=== PATIENT | male | born 1960 | race Caucasian/White ===

== ENCOUNTER 2020-04-26 14:52 | Emergency (ER) | payer BC ==
[~2020-04-26] VITALS: Ht 170.2 cm; Wt 81.7 kg
--- NOTE | ~2020-04-26 | EMS ---
[facility] [address] [place] [address] EMS Patient Care Report Name: LAKE WALLER Room #: PRE M.R.#: [id number] Admission: Attend Phys: Discharge: Date of : 56 Report #: [id number] THIS REPORT FOR: //name// Report Transmitted: 04/26/2020 14:19 EMS Care Summary [place], [place]/[facility] Incident [id number] @ 04/26/2020 14:03 Incident Location [address] [place], [place] [id number] Patient LAKE WALLER Male, 59 Years 1960 Patient Address [address] [place], [place] [id number] Patient History Behavioral/Psychiatric Disorder, Chief Complaint alcohol intox Disposition Transported No Lights/[place] Reason Overdose/Poisoning/Ingestion Transported To [facility] Narrative ems met [facility] on scene. pt found sitting upright against car and alert. pt alert lao speaking and confused gcs 14. pt repeatedly asked for "one cerveza". pt has no complaints. pt could not provide his address. empty bottles of liquor were found in pts car by [facility]. pt continued to ask ems for "one more cerveza" and pointed at a nearby market. pt was transferred onto ems cot and was secured in a semi fowlers position without incident. pt was loaded into ambulance. pts [facility] [address] [place] [address] EMS Patient Care Report Name: LAKE WALLER Room #: PRE [facility] [id number] Admission: Attend Phys: Discharge: Date of : 56 Report #: [id number] family was called on his phone. pts son "Alon" spoke to ems and he stated to take pt to hospital. pts family was advised pt is being transported to [facility]. pt was transported non emergent. pt would not comply with wearing a facemask. pt continued to ask for more cerveza. pt stated he drank x3 bottles of whiskey. when attempting a bl/gl check, once ems wiped pts finger with an alcohol pad pt would immediately start sucking the alcohol off his finger and demanded more alcohol. bl/gl check was unsuccessful. transport was uneventful and pt rested on ems cot. pt care was transferred to appropriate staff and ems goes back in service. pts phone, wallet and keys were left with pt. Initial Vitals @14:28P: 100,R: 20,BP: 146/66,Pain: 0/10,GCS: 15,SpO2: 97,Revised Trauma: 12, @14:42P: 100,R: 20,BP: 142/66,GCS: 15,SpO2: 97,Revised Trauma: 12, Assessments @14:19MENTAL:No Abnormalities,SKIN:No Abnormalities,HEENT:Head/Face: No Abnormalities,Eyes: No Abnormalities,Neck/Airway: No Abnormalities,LUNG SOUNDS:General: No Abnormalities,Left Upper: No Abnormalities,Right Upper: No Abnormalities,Left Lower: No Abnormalities,Right Lower: No Abnormalities,ABDOMEN:General: No Abnormalities,Left Upper: No Abnormalities,Right Upper: No Abnormalities,Left Lower: No Abnormalities,Right Lower: No Abnormalities,PELVIS//GI:No Abnormalities,EXTREMITIES:Left Arm: No Abnormalities,Right Arm: No Abnormalities,Left Leg: No Abnormalities,Right Leg: No Abnormalities,PULSE:NEURO:No Abnormalities,@14:42MENTAL:No Abnormalities,SKIN:No Abnormalities,HEENT:Head/Face: No Abnormalities,Eyes: No Abnormalities,Neck/Airway: No Abnormalities,LUNG SOUNDS:General: No Abnormalities,Left Upper: No Abnormalities,Right Upper: No Abnormalities,Left Lower: No Abnormalities,Right Lower: No Abnormalities,ABDOMEN:General: No Abnormalities,Left Upper: No Abnormalities,Right Upper: No Abnormalities,Left Lower: No Abnormalities,Right Lower: No Abnormalities,PELVIS//GI:No Abnormalities,EXTREMITIES:Left Arm: No Abnormalities,Right Arm: No Abnormalities,Left Leg: No Abnormalities,Right Leg: No Abnormalities,PULSE:NEURO:No Abnormalities, Impression Alcohol use Procedures @14:19ALS AssessmentResponse: UnchangedSucceeded Timeline 14:03,Call Received 14:03,Dispatch Notified 14:03,Dispatched 14:05,En Route 14:18,On Scene [address] [address] EMS Patient Care Report Name: LAKE WALLER Room #: PRE HITESH Guevara#: [id number] Admission: Attend Phys: Discharge: Date of : 56 Report #: [id number] 14:19,At Patient 14:19,ALS Assessment,Response: UnchangedSucceeded, 14:28,BP: 146/66 M,PULSE: 100,RR: 20 R,SPO2: 97 Ox,ETCO2: ,BG: ,PAIN: 0,GCS: 15, 14:32,Depart Scene 14:42,BP: 142/66 M,PULSE: 100,RR: 20 R,SPO2: 97 Ox,ETCO2: ,BG: ,PAIN: ,GCS: 15, 14:45,At Destination 15:06,Call Closed Disclaimer [email or web address] Copyright 2020 [email or web address] This EMS Care Summary contains data elements from the applicable legal record (which may be displayed differently). It is designed to provide pertinent information for the following purposes: continuity of care, clinical quality, and state data reporting. The complete legal record is available to ED staff and administrators of the receiving hospital in [facility]'s Patient Tracker. All data is provided "as is."
[2020-04-26 15:38] LABS: ABSOLUTE NEUTROPHILS 4.2 thou/uL (1.4-8.2); BASOPHILS 0.6 % (0.0-2.0); EOSINOPHILS 0.7 % (0.0-3.0); HEMATOCRIT 43.2 % (42.0-52.0); HEMOGLOBIN 14.5 gm/dL (14.0-18.0); MCHC 33.6 g/dL (28.0-37.0); MCV 89.3 fL (80.0-100.0); MONOCYTES 8.5 % (1.0-8.0); PLATELET COUNT 291 thou/uL (150-400); POLYS 48.2 % (36.0-66.0); RBC 4.84 mil/uL (4.50-6.00); RDW 14.2 % (10.5-14.5); WBC 8.7 thou/uL (4.0-11.0)
[2020-04-26 15:50] LABS: CALCIUM 8.1 mg/dL (8.5-10.1); POTASSIUM 3.3 mmol/L (3.5-5.1)
[2020-04-26 15:56] LABS: ALBUMIN 3.4 g/dL (3.4-5.0); TOTAL BILIRUBIN 0.6 mg/dL (0.2-1.0); TOTAL PROTEIN 6.9 g/dL (6.4-8.2)
[2020-04-26 21:35] VITALS: BP 163/94
== END 2020-04-26 21:35 | disposition home or self-care (01) ==
LOC: ER 14:52
PROVIDERS: Emergency Medicine
DX: F10.920 Alcohol use, unspecified with intoxication, uncomplicated (principal)